=== PATIENT | female | born 1990 | race Caucasian/White ===

== ENCOUNTER 2020-07-23 12:17 | Emergency (ER) | payer MEDICAID ==
[~2020-07-23] VITALS: Ht 154.9 cm; Wt 143.3 kg
--- NOTE | 2020-07-23 13:05 | NUR ---
PT TO US
--- NOTE | 2020-07-23 13:30 | NUR ---
PT BACK FROM [place]
[2020-07-23] MEDS ORDERED: OMNIPAQUE 350 MG/ML, 150 ML BOTTLE ONE (13:39)
[2020-07-23 13:40] VITALS: BP 159/79
[2020-07-23] MEDS ORDERED: ONDANSETRON ODT 8 MG ONE (13:42)
[2020-07-23] MEDS ORDERED: ONDANSETRON ODT 8 MG PO ONE (14:00)
== END 2020-07-23 14:37 | disposition home or self-care (01) ==
LOC: ED 13:48
DX: R13.10 Dysphagia, unspecified (principal); F45.8 Other somatoform disorders; J45.909 Unspecified asthma, uncomplicated; Z88.0 Allergy status to penicillin
CPT/HCPCS: 74220; 99283; Q0162; Q9967